=== PATIENT | female | born 1940 | race Caucasian/White ===

== ENCOUNTER 2018-01-15 21:01 | Inpatient (IN) | payer MEDICARE ==
[~2018-01-15] VITALS: Ht 160 cm; Wt 63.0 kg
[2018-01-15 20:00] VITALS: BP 150/71
[2018-01-15] MEDS ORDERED: CLON0.1T PO (21:14)
[2018-01-15] MEDS ORDERED: LEVO50TA8 PO (21:14)
[2018-01-15] MEDS ORDERED: DIVA-78 PO (21:14)
[2018-01-15] MEDS ORDERED: TRIA15CR2 TP (21:14)
[2018-01-15] MEDS ORDERED: FENO145T37 PO (21:14)
[2018-01-15] MEDS ORDERED: GLIM1TAB3 PO (21:14)
[2018-01-15] MEDS ORDERED: FLUT16SP NS (21:14)
[2018-01-15] MEDS ORDERED: ASPI81TA31 PO (21:14)
[2018-01-15] MEDS ORDERED: QUET50TA PO (21:14)
[2018-01-15] MEDS ORDERED: ZOLP5TAB8 PO (21:14)
[2018-01-15] MEDS ORDERED: METF-441 PO (21:14)
[2018-01-15] MEDS ORDERED: QUET100T PO (21:14)
[2018-01-15] MEDS ORDERED: NITR50CA PO (21:14)
[2018-01-15] MEDS ORDERED: LISI10TA5 PO (21:14)
--- NOTE | 2018-01-15 22:07 | NUR ---
Pt. admitted to GPS, under care of Dr. Byrnes Belongs List completed
--- NOTE | 2018-01-15 22:10 | NUR ---
Patient transferred to MHU from ED. Patient is a 77y/o F. admitted on a 5150 hold for Suicidal Ideation with a plan to cut her wrists. Patient in A&O x3, PERRLA, Skin is intact, pink & warm to touch. Bilateral lung sounds clear. No SOB noted. Bowel sounds present. No pain verbalized by patient. No distress or discomfort observed. Patient ambulates with a steady gate. Patient compliant and interacting with staff appropriately. Will continue to monitor. Report received from CHALO Segovia.
[2018-01-16] MEDS ORDERED: ACETAMINOPHEN 325 MG TABLET PO PRN (00:15)
[2018-01-16] MEDS ORDERED: MAGNESIUM HYDROXIDE 30 ML LIQUID UDC PO PRN (00:15)
[2018-01-16] MEDS ORDERED: MAG HYDROX/AL HYDROX/SIMETH 30 ML LIQUID UDC PO PRN (00:15)
[2018-01-16] MEDS ORDERED: CLONIDINE HCL 0.1 MG TABLET PO PRN (00:30)
[2018-01-16] MEDS: ZOLPIDEM 5 MG TABLET PO PRN ×2 (00:36→20:23)
[2018-01-16] MEDS: LORAZEPAM 0.5 MG TABLET PO PRN (02:40)
[2018-01-16] MEDS: GLIMEPIRIDE 2 MG TABLET PO SCH (08:19)
[2018-01-16] MEDS: LEVOTHYROXINE SODIUM 50 MCG TABLET PO SCH (08:19)
[2018-01-16] MEDS: FENOFIBRATE NANOCRYSTALLIZED 145 MG TABLET PO SCH (08:19)
[2018-01-16] MEDS: ASPIRIN 81 MG TAB.CHEW PO SCH (08:19)
[2018-01-16] MEDS: LISINOPRIL 10 MG TABLET PO SCH (08:19)
[2018-01-16 08:30] VITALS: BP 118/47
[2018-01-16] MEDS: METFORMIN HCL 850 MG TABLET PO SCH ×2 (08:59→17:00)
[2018-01-16] MEDS ORDERED: FLUTICASONE PROP NASAL SPRAY 16 GM BOTTLE NS SCH (09:00)
[2018-01-16] MEDS ORDERED: Medication Not On Formulary EA (Glimepiride 1 MG) PO SCH (09:00)
[2018-01-16] MEDS: NITROFURANTOIN/NITROFURAN MAC 100 MG CAPSULE PO SCH ×2 (10:34→20:19)
[2018-01-16] MEDS: TRIAMCINOLONE ACET 0.5% CREAM 15 GM TUBE TP SCH ×2 (10:34→20:19)
[2018-01-16] MEDS: FLUTICASONE PROP NASAL SPRAY 16 GM BOTTLE NS SCH (11:20)
[2018-01-16] MEDS: DIVALPROEX 250 MG TABLET.DR PO SCH ×2 (12:50→16:48)
[2018-01-16 15:39] VITALS: BP 116/74
[2018-01-16 20:00] VITALS: BP 121/78
[2018-01-17 02:20] LABS: *BILIRUBIN,URIN NEGATIVE (NEGATIVE); *BLOOD, URINE Trace-intact (NEGATIVE); *CLARITY,URINE CLEAR (CLEAR); *COLOR,URINE YELLOW (YELLOW); *KETONES,URINE NEGATIVE (NEGATIVE); *PROTEIN,URINE NEGATIVE (NEGATIVE); *UROBILINOGEN,URINE 0.2 E.U./dl (NORMAL); LEUKOCYTE ESTERASE ,URINE NEGATIVE (NEGATIVE); NITRITE, URINE NEGATIVE (NEGATIVE); UGLUCOSE NEGATIVE (NEGATIVE)
[2018-01-17] MEDS: LORAZEPAM 0.5 MG TABLET PO PRN (02:28)
[2018-01-17 02:30] LABS: BACTERIA,URINE NONE SEEN /HPF (NONE SEEN); RBC,URINE 0-3 /HPF (0-3); SQUAMOUS EPITHELIAL CELL,UR FEW /HPF (NONE SEEN); WBC,URINE NONE SEEN /HPF (0-3)
[2018-01-17] MEDS: LEVOTHYROXINE SODIUM 50 MCG TABLET PO SCH (06:48)
[2018-01-17 07:21] LABS: CARBON DIOXIDE 27 mmol/L (21-32); CHLORIDE 108 mmol/L (98-107); CREATININE 0.7 mg/dL (0.6-1.3); GLUCOSE 103 mg/dL (74-106); MAGNESIUM 1.8 mg/dL (1.8-2.4); POTASSIUM 3.7 mmol/L (3.5-5.1); UREA NITROGEN, BLOOD 25 mg/dL (7-18)
[2018-01-17 07:30] VITALS: BP 143/71
[2018-01-17 07:46] LABS: BASOPHILS # (AUTO) 0.1 K/uL (0.0-8.0); EOSINOPHILS # (AUTO) 0.2 K/uL (0.0-0.7); EOSINOPHILS % (AUTO) 3.9 % (0.0-7.0); HEMATOCRIT 34.4 % (31.2-41.9); HEMOGLOBIN 11.7 g/dL (10.9-14.3); LYMPHOCYTES # (AUTO) 1.9 K/uL (20.0-40.0); LYMPHOCYTES % (AUTO) 31.8 % (20.5-51.5); MEAN CORPUSCULAR HEMOGLOBIN 29.3 uug (24.7-32.8); MEAN CORPUSCULAR HGB CONC 34 g/dL (32.3-35.6); MEAN CORPUSCULAR VOLUME 86.3 fL (75.5-95.3); MONOCYTES # (AUTO) 0.5 K/uL (2.0-10.0); MONOCYTES % (AUTO) 8.4 % (0.0-11.0); NEUTROPHILS # (AUTO) 3.3 K/uL (1.8-8.9); NEUTROPHILS % (AUTO) 54.9 % (38.5-71.5); PLATELET COUNT (AUTO) 371 K/uL (179-408); RED BLOOD CELL COUNT(AUTO) 3.98 MIL/uL (3.63-4.92); WHITE BLOOD COUNT (AUTO) 6.1 K/uL (3.8-11.8)
[2018-01-17 09:19] VITALS: BP 143/71
[2018-01-17] MEDS: FENOFIBRATE NANOCRYSTALLIZED 145 MG TABLET PO SCH (09:19)
[2018-01-17] MEDS: DIVALPROEX 250 MG TABLET.DR PO SCH ×2 (09:19→12:40)
[2018-01-17] MEDS: ASPIRIN 81 MG TAB.CHEW PO SCH (09:19)
[2018-01-17] MEDS: NITROFURANTOIN/NITROFURAN MAC 100 MG CAPSULE PO SCH (09:19)
[2018-01-17] MEDS: GLIMEPIRIDE 2 MG TABLET PO SCH (09:19)
[2018-01-17] MEDS: FLUTICASONE PROP NASAL SPRAY 16 GM BOTTLE NS SCH (09:19)
[2018-01-17] MEDS: METFORMIN HCL 850 MG TABLET PO SCH (09:19)
[2018-01-17] MEDS: LISINOPRIL 10 MG TABLET PO SCH (09:19)
[2018-01-17] MEDS: TRIAMCINOLONE ACET 0.5% CREAM 15 GM TUBE TP SCH (09:20)
--- NOTE | 2018-01-17 16:00 | NUR ---
[facility]PS: Nursing Notes: Discharge Notes: Patient is awake and responding to her name, cooperative with nursing care, compliant with her medication, following staff directions, A/Ox4, at this time, denies any SI/HI, denies any AH/VH, denies any pain or discomfort, denies any SOB. Dicharge to 2nd floor, Telemetry department with Dx: Syncope per Rachel Schmidt NP, Dr. Byrnes to follow for psychiatric evaluation and treatment. Stenotype Machine Operator: Issa Armenta to follow for consultation. Patient's daughter Hina Gauthier was notify of transfer. Patient took all her belongings with her.
[2018-01-17] MEDS ORDERED: DIVALPROEX 250 MG TABLET.DR PO SCH (17:00)
--- NOTE | 2018-01-18 09:07 | NUR ---
Initial DC Instructions: Patient currently lives at [address]. [place], [place], [address] her daughter, Hina Gauthier [[phone]]. Per patient she would like to return to live with her daughter when ready. Resident Director spoke with daughter and she is agreeable with patient returning home with her. Patient will need a smoking cessation referrals upon discharge. Resident Director will assist patient and P.O.A. with a safe and proper discharge plan.
== END 2018-01-17 16:00 | disposition short-term general hospital (02) | DRG 885 ==
LOC: ER 21:04 → GPS 21:58
PROVIDERS: ADMIT Psychiatry & Neurology Psychosomatic Medicine; ATTEND Nurse Practitioner Acute Care
DX: F25.0 Schizoaffective disorder, bipolar type (principal); E11.65 Type 2 diabetes mellitus with hyperglycemia; R45.851 Suicidal ideations; Z88.0 Allergy status to penicillin; Z88.2 Allergy status to sulfonamides; Z88.8 Allergy status to other drugs, medicaments and biological substances; Z79.84 Long term (current) use of oral hypoglycemic drugs; Z79.82 Long term (current) use of aspirin; Z66 Do not resuscitate; F41.0 Panic disorder [episodic paroxysmal anxiety]; E03.9 Hypothyroidism, unspecified; E78.5 Hyperlipidemia, unspecified; I45.81 Long QT syndrome; R55 Syncope and collapse; I10 Essential (primary) hypertension; I45.10 Unspecified right bundle-branch block; E86.0 Dehydration; F09 Unspecified mental disorder due to known physiological condition; Z86.69 Personal history of other diseases of the nervous system and sense organs
CPT/HCPCS: 36415; 83735; 84100; 85025; 93005; 93307; A4663; J3490; J3535

== ENCOUNTER 2018-01-17 16:23 | Inpatient (IN) | payer MEDICARE ==
[~2018-01-17] VITALS: Ht 160 cm; Wt 63.0 kg
[2018-01-17 04:00] VITALS: BP 103/59
--- NOTE | 2018-01-17 15:45 | NUR ---
RECEIVED PATIENT FROM U 77 YEARS OLD FEMALE WITH DX OF SYNCOPE ASSISTED INTO BED FIXED AND MADE COMFORTABLE PATIENT IS ALERT AND ORIENTED AND ASSISTED WITH HER ADMISSION PROTOCOL.DENIES PAIN DISCOMFORTS OR SUICIDAL AT THIS TIME ON ROOM AIR WITH NO SHORTNESS OF BREATH AT THIS TIME.ORIENTED TO ROOM AND THE FACILITY PROTOCOL MADE COMFORTABLE NOT IN DISTRESS AT THIS TIME.
[~2018-01-17 16:23] MED LIST: ASPI81TA31 PO; CLON0.1T PO; FENO145T37 PO; FLUT16SP NS; GLIM1TAB3 PO; LEVO50TA8 PO; LISI10TA5 PO; METF-441 PO; NITR50CA PO; TRIA15CR2 TP
[2018-01-17] MEDS ORDERED: MAGNESIUM HYDROXIDE 30 ML LIQUID UDC PO PRN (16:30)
[2018-01-17] MEDS ORDERED: CLONIDINE HCL 0.1 MG TABLET PO PRN (16:30)
[2018-01-17] MEDS ORDERED: MAG HYDROX/AL HYDROX/SIMETH 30 ML LIQUID UDC PO PRN (16:30)
--- NOTE | 2018-01-17 17:40 | NUR ---
HEPLOCK INSERTED TO HER LEFT FORE ARM TELE MONITORING IS SR NOT IN DISTRESS AT THIS TIME.
[2018-01-17] MEDS: METFORMIN HCL 850 MG TABLET PO SCH (17:51)
[2018-01-17] MEDS ORDERED: ONDANSETRON 4 MG/2 ML VIAL IV PRN (19:45)
[2018-01-17] MEDS ORDERED: HYDROCODONE/APAP 5-325MG TABLET PO PRN (19:45)
[2018-01-17 20:00] VITALS: BP 110/59
--- NOTE | 2018-01-17 20:00 | NUR ---
RECEIVED PT'S A/A/O X4,DENIED OF PAIN OR ANY DISCOMFORT.PT'S ON 14 DAYS HOLD;W/1:1 SITTER AT THE BEDSIDE FOR SAFETY.PT DENIED OF PAIN OR ANY DIZZINESS.TELEMETRY'S SR W/BBB NOTED.PER PT REQUESTED TO GET MEDICATION FOR ANXIETY LATER.SAFETY RENDER.
[2018-01-17] MEDS: NITROFURANTOIN/NITROFURAN MAC 100 MG CAPSULE PO SCH (20:11)
[2018-01-17] MEDS: TRIAMCINOLONE ACET 0.5% CREAM 15 GM TUBE TP SCH (20:11)
--- NOTE | 2018-01-17 21:30 | NUR ---
ATIVAN 0.5 MG PO X1 TO PT REQUEST,CRANBERRY JUICE WAS GIVEN TO PT;PT TOLERATED WELL NOTED,DENIED OF PAIN OR ANY DISCOMFORT.SAFETY RENDER.1:1 SITTER AT THE BEDSIDE.
[2018-01-17] MEDS: LORAZEPAM 0.5 MG TABLET PO PRN (21:31)
[2018-01-17] MEDS: ZOLPIDEM 5 MG TABLET PO PRN (23:16)
[2018-01-18] VITALS: BP 134/71
--- NOTE | 2018-01-18 01:00 | NUR ---
PT'S COMFORTABLE ON BED;DENIED OF DIZZINESS,ALREADY GOT AMBIEN,STATED THAT"I'M OK IF I NEED ANY MEDICATION,I'LL ASK".KEPT COMFORT.CALL-LIGHT WITHIN REACH.TELEMETRY'S SR 78 W/BBB.CONTINUED MONITORING TO PT.
[2018-01-18 04:20] VITALS: BP 131/65
--- NOTE | 2018-01-18 06:00 | NUR ---
PT SLEPT ONLY 2 HOURS IN THE SHIFT,MOSTLY WATCHED TV.PAIN'S CONTROLLED.NO DISTRESS NOTED IN THE SHIFT.TELEMETRY'S SR 64/MIN AT THIS TIME,PT DENIED OF ANY DIZZINESS AT THIS TIME NOTED.
[2018-01-18] MEDS: LEVOTHYROXINE SODIUM 50 MCG TABLET PO SCH (06:22)
[2018-01-18 06:37] LABS: BASOPHILS # (AUTO) 0.1 K/uL (0.0-8.0); EOSINOPHILS # (AUTO) 0.3 K/uL (0.0-0.7); EOSINOPHILS % (AUTO) 4.3 % (0.0-7.0); HEMATOCRIT 33.9 % (31.2-41.9); HEMOGLOBIN 11.3 g/dL (10.9-14.3); LYMPHOCYTES # (AUTO) 2.1 K/uL (20.0-40.0); MEAN CORPUSCULAR HGB CONC 33 g/dL (32.3-35.6); MEAN CORPUSCULAR VOLUME 86.8 fL (75.5-95.3); MONOCYTES # (AUTO) 0.5 K/uL (2.0-10.0); NEUTROPHILS # (AUTO) 3.8 K/uL (1.8-8.9); NEUTROPHILS % (AUTO) 55.7 % (38.5-71.5); PLATELET COUNT (AUTO) 360 K/uL (179-408); WHITE BLOOD COUNT (AUTO) 6.9 K/uL (3.8-11.8)
[2018-01-18 06:42] LABS: CARBON DIOXIDE 24 mmol/L (21-32); CHLORIDE 104 mmol/L (98-107); CREATININE 0.9 mg/dL (0.6-1.3); GLUCOSE 136 mg/dL (74-106); MAGNESIUM 1.7 mg/dL (1.8-2.4); PHOSPHOROUS 2.9 mg/dL (2.5-4.9); POTASSIUM 4.3 mmol/L (3.5-5.1); UREA NITROGEN, BLOOD 27 mg/dL (7-18)
--- NOTE | 2018-01-18 07:45 | NUR ---
RECEIVED PATIENT AWAKE ALERT AND ORIENTED DENIES PAIN OR DISCOMFORTS AT THIS TIME REMAIN ON HOLD WITH ONE ON ONE SITTER NO S/S OF HYPO/HYPERGLYCEMIC REACTIONS AT THIS TIME REMAIN ON TELEMETRY MONITORY SR WITH NO ECTOPY MADE COMFORTABLE AND WILL CONTINUE TO OBSERVE.
[2018-01-18] MEDS: ASPIRIN 81 MG TAB.CHEW PO SCH (08:30)
[2018-01-18] MEDS: FENOFIBRATE NANOCRYSTALLIZED 145 MG TABLET PO SCH (08:30)
[2018-01-18] MEDS: NITROFURANTOIN/NITROFURAN MAC 100 MG CAPSULE PO SCH ×2 (08:31→20:53)
[2018-01-18] MEDS: METFORMIN HCL 850 MG TABLET PO SCH (08:31)
[2018-01-18] MEDS: GLIMEPIRIDE 2 MG TABLET PO SCH (08:31)
[2018-01-18] MEDS: FLUTICASONE PROP NASAL SPRAY 16 GM BOTTLE NS SCH (08:32)
[2018-01-18] MEDS: TRIAMCINOLONE ACET 0.5% CREAM 15 GM TUBE TP SCH ×2 (08:33→20:53)
[2018-01-18] MEDS: LISINOPRIL 10 MG TABLET PO SCH (08:34)
[2018-01-18] MEDS: risperiDONE 0.25 MG TABLET PO SCH ×2 (08:38→16:28)
[2018-01-18] MEDS: BENZTROPINE MESYLATE 0.5 MG TABLET PO SCH ×2 (08:38→16:28)
[2018-01-18 11:00] VITALS: BP 133/62
[2018-01-18] MEDS ORDERED: DEXTROSE 50% 50 ML DISP.SYRIN IV PRN (11:15)
[2018-01-18] MEDS ORDERED: IV NS 1000 ML 1,000 ML IV ONE (11:15)
--- NOTE | 2018-01-18 11:34 | NUR ---
Firearms Report: Plate Printer completed and submitted [employer]arms Report for 5150 DTS certification.
[2018-01-18] MEDS: MAGNESIUM SULFATE/D5W 100 ML IV SCH ×2 (11:48→12:55)
[2018-01-18] MEDS: BLOOD SUGAR DIAGNOSTIC 1 EACH STRIP VI SCH ×3 (11:54→20:53)
[2018-01-18] MEDS: INSULIN REGULAR, HUMAN 300 UNIT/3 ML VIAL SQ PRN (11:57)
[2018-01-18 12:32] LABS: THYROID STIMULATING HORMONE 3.871 mIU/mL (0.358-3.740)
[2018-01-18] MEDS: DIVALPROEX 250 MG TABLET.DR PO SCH ×2 (12:55→16:28)
[2018-01-18 13:41] LABS: *BILIRUBIN,URIN NEGATIVE (NEGATIVE); *BLOOD, URINE NEGATIVE (NEGATIVE); *CLARITY,URINE CLEAR (CLEAR); *COLOR,URINE YELLOW (YELLOW); *KETONES,URINE NEGATIVE (NEGATIVE); *PROTEIN,URINE NEGATIVE (NEGATIVE); *UROBILINOGEN,URINE 0.2 E.U./dl (NORMAL); LEUKOCYTE ESTERASE ,URINE NEGATIVE (NEGATIVE); NITRITE, URINE NEGATIVE (NEGATIVE); UGLUCOSE NEGATIVE (NEGATIVE)
[2018-01-18 15:12] LABS: BACTERIA,URINE NONE SEEN /HPF (NONE SEEN); RBC,URINE 0-3 /HPF (0-3); SQUAMOUS EPITHELIAL CELL,UR FEW /HPF (NONE SEEN); WBC,URINE 0-3 /HPF (0-3)
[2018-01-18] MEDS: ACETAMINOPHEN 325 MG TABLET PO PRN (15:24)
--- NOTE | 2018-01-18 16:27 | NUR ---
BLOOD SUGAR AT THIS TIME IS 62 PATIENT IS ALERT AND ORIENTED SKIN IS WARM AND DRY NO S/S OF HYPOGLYCEMIC AT THIS TIME ORANGE JUICE 4 OZ GIVEN PATIENT DRANK AND TOLERATED WELL.WILL CONTINUE TO OBSERVE PT.
--- NOTE | 2018-01-18 17:08 | NUR ---
BLOOD SUGAR RECHECKED AT THIS TIME AND ITS 119 DINNER SERVED NOT IN DISTRESS AT THIS TIME .PATIENT MADE COMFORTABLE.
--- NOTE | 2018-01-18 17:56 | NUR ---
DR CHOPRA AND DR EDMONDS HERE TO SEE PATIENT MD REVIEWED THE EKG RESULTS WITH NO NEW ORDERS AT THIS TIME EKG WILL BE REPEATED TOMORROW MORNING ORDERED.
--- NOTE | 2018-01-18 19:35 | NUR ---
nsg: pt received a/o x 4, no acute distress noted. denies discomfort. on RA, saturating at 95%. tele, SR with bbb. on psychiatric 14 day hold, 1:1 sitter at the bedside. ambulatory with assistance.
[2018-01-18 20:00] VITALS: BP 127/70
[2018-01-18] MEDS: ZOLPIDEM 5 MG TABLET PO PRN (22:46)
[2018-01-19] VITALS: BP 115/56
--- NOTE | 2018-01-19 | NUR ---
nsg: no change in condition.
[2018-01-19] MEDS: LORAZEPAM 0.5 MG TABLET PO PRN (00:06)
[2018-01-19 04:00] VITALS: BP 118/73
--- NOTE | 2018-01-19 05:19 | NUR ---
nsg: pt only slept for 30 mins. ambien and ativan given. no acute distress noted. denies discomfort. tele, SR. still with 1:1 sitter at bedside.
[2018-01-19] MEDS: LEVOTHYROXINE SODIUM 50 MCG TABLET PO SCH (05:55)
[2018-01-19 06:23] LABS: BASOPHILS # (AUTO) 0.1 K/uL (0.0-8.0); BASOPHILS % (AUTO) 0.9 % (0.0-2.0); EOSINOPHILS # (AUTO) 0.3 K/uL (0.0-0.7); EOSINOPHILS % (AUTO) 4.7 % (0.0-7.0); HEMATOCRIT 33.7 % (31.2-41.9); HEMOGLOBIN 11.4 g/dL (10.9-14.3); LYMPHOCYTES # (AUTO) 2.3 K/uL (20.0-40.0); LYMPHOCYTES % (AUTO) 31.8 % (20.5-51.5); MEAN CORPUSCULAR HEMOGLOBIN 28.6 uug (24.7-32.8); MEAN CORPUSCULAR HGB CONC 34 g/dL (32.3-35.6); MEAN CORPUSCULAR VOLUME 84.8 fL (75.5-95.3); MONOCYTES # (AUTO) 0.6 K/uL (2.0-10.0); MONOCYTES % (AUTO) 7.9 % (0.0-11.0); NEUTROPHILS % (AUTO) 54.7 % (38.5-71.5); PLATELET COUNT (AUTO) 363 K/uL (179-408); RED BLOOD CELL COUNT(AUTO) 3.97 MIL/uL (3.63-4.92); WHITE BLOOD COUNT (AUTO) 7.2 K/uL (3.8-11.8)
--- NOTE | 2018-01-19 06:27 | NUR ---
nsg: QT interval is 43 sec.
[2018-01-19 06:49] LABS: CARBON DIOXIDE 25 mmol/L (21-32); CHLORIDE 108 mmol/L (98-107); CREATININE 0.7 mg/dL (0.6-1.3); GLUCOSE 99 mg/dL (74-106); POTASSIUM 3.9 mmol/L (3.5-5.1); UREA NITROGEN, BLOOD 19 mg/dL (7-18)
[2018-01-19] MEDS: BLOOD SUGAR DIAGNOSTIC 1 EACH STRIP VI SCH ×4 (07:59→21:01)
[2018-01-19 08:00] VITALS: BP 146/74
[2018-01-19] MEDS: ASPIRIN 81 MG TAB.CHEW PO SCH (08:14)
[2018-01-19] MEDS: GLIMEPIRIDE 2 MG TABLET PO SCH (08:15)
[2018-01-19] MEDS: NITROFURANTOIN/NITROFURAN MAC 100 MG CAPSULE PO SCH (08:16)
[2018-01-19] MEDS: FENOFIBRATE NANOCRYSTALLIZED 145 MG TABLET PO SCH (08:16)
[2018-01-19] MEDS: LISINOPRIL 10 MG TABLET PO SCH (08:17)
[2018-01-19] MEDS: BENZTROPINE MESYLATE 0.5 MG TABLET PO SCH ×2 (08:17→16:50)
[2018-01-19] MEDS: DIVALPROEX 250 MG TABLET.DR PO SCH ×3 (08:17→16:49)
[2018-01-19] MEDS: FLUTICASONE PROP NASAL SPRAY 16 GM BOTTLE NS SCH (08:18)
[2018-01-19] MEDS: risperiDONE 0.25 MG TABLET PO SCH ×3 (08:18→22:31)
[2018-01-19] MEDS: TRIAMCINOLONE ACET 0.5% CREAM 15 GM TUBE TP SCH ×2 (08:19→21:01)
--- NOTE | 2018-01-19 09:53 | NUR ---
SBAR report received, Pt resting in bed, AAOx4, no acute distress or SOB RA. Pt denies pain, claims to be "slightly paranoid at times", reassured Pt staff is simply here to help keep her safe. 1:1 sitter present at bedside. Pt denies SI at this time. Pt compliant with all routinely scheduled morning medications. Stable gait observed. Pt seen by BRAZER CONTROLLED ATMOSPHERIC FURNACE. All safety and comfort needs met at this time. Bed in locked and lowest position, side rails upx2. Will continue to monitor for safety.
[2018-01-19 12:00] VITALS: BP 116/69
[2018-01-19 16:00] VITALS: BP 128/70
--- NOTE | 2018-01-19 18:51 | NUR ---
No changes to Pt plan of care at this time. Pt is in SR, HR 79, with PVCs. 1:1 sitter remains at bedside. All safety and comfort needs attended to promptly. Last BS of 90 did not require coverage. Will continue to monitor and endorse to oncoming manager research and development.
--- NOTE | 2018-01-19 19:30 | NUR ---
RECEIVED PATIENT IN BED ALERT ORIENTED, NO SOB NO CHEST PAIN, RHYTHM SINUS RHYHTM WITH PVC, R BUNDLE BRANCH BLOCK. NO COMPLAIN OF PAIN, CONT 1;1 SITTER FOR SAFETY, OBTAIN REPORT THAT PATIENT DIDNT SLEEP LAST NIGHT, REORIENT PATIENT THAT SHE NEEDS SLEEP, SO THAT SHE WILL FEEL WELL RESTED IN THE MORNING. CONT TO MONITOR.
[2018-01-19 20:00] VITALS: BP 120/63
[2018-01-19] MEDS: INSULIN REGULAR, HUMAN 300 UNIT/3 ML VIAL SQ PRN (21:00)
[2018-01-19] MEDS: ACETAMINOPHEN 325 MG TABLET PO PRN (22:31)
[2018-01-19] MEDS: ZOLPIDEM 5 MG TABLET PO PRN (23:28)
[2018-01-20] VITALS: BP 122/63
[2018-01-20 04:00] VITALS: BP 115/60
[2018-01-20] MEDS: LEVOTHYROXINE SODIUM 50 MCG TABLET PO SCH (06:02)
[2018-01-20] MEDS: BLOOD SUGAR DIAGNOSTIC 1 EACH STRIP VI SCH ×3 (06:02→17:13)
[2018-01-20 06:40] LABS: BASOPHILS # (AUTO) 0.1 K/uL (0.0-8.0); BASOPHILS % (AUTO) 1.3 % (0.0-2.0); EOSINOPHILS # (AUTO) 0.4 K/uL (0.0-0.7); EOSINOPHILS % (AUTO) 5.8 % (0.0-7.0); HEMATOCRIT 36.6 % (31.2-41.9); HEMOGLOBIN 12.3 g/dL (10.9-14.3); LYMPHOCYTES # (AUTO) 2.2 K/uL (20.0-40.0); LYMPHOCYTES % (AUTO) 29.8 % (20.5-51.5); MEAN CORPUSCULAR HEMOGLOBIN 28.9 uug (24.7-32.8); MEAN CORPUSCULAR HGB CONC 34 g/dL (32.3-35.6); MEAN CORPUSCULAR VOLUME 86.2 fL (75.5-95.3); MONOCYTES # (AUTO) 0.6 K/uL (2.0-10.0); MONOCYTES % (AUTO) 8.5 % (0.0-11.0); NEUTROPHILS # (AUTO) 4.1 K/uL (1.8-8.9); NEUTROPHILS % (AUTO) 54.6 % (38.5-71.5); PLATELET COUNT (AUTO) 406 K/uL (179-408); RED BLOOD CELL COUNT(AUTO) 4.25 MIL/uL (3.63-4.92); WHITE BLOOD COUNT (AUTO) 7.5 K/uL (3.8-11.8)
--- NOTE | 2018-01-20 06:40 | NUR ---
PATIENT SLEPT ON AND OFF, SLEPT FOR 4 HOURS ONLY, ASSISTED WITH TOILETING, NO COMPLAIN OF PAIN NOR DISCOMFORT, ON TELE SINUS RHYTHM WITH PVC, R BUNDLE BRANCH. PATIENT STILL HAS EPISODES OF HALLUCINATIONS, AND PARANOIA. CONT TO REDIRECT PATIENT, NO COMPLAIN OF PAIN. CONT ON 1;1 SITTER FOR SAFETY. CONT TO MONITOR.
[2018-01-20 06:49] LABS: CARBON DIOXIDE 28 mmol/L (21-32); CHLORIDE 105 mmol/L (98-107); CREATININE 0.8 mg/dL (0.6-1.3); GLUCOSE 111 mg/dL (74-106); POTASSIUM 4.1 mmol/L (3.5-5.1); UREA NITROGEN, BLOOD 20 mg/dL (7-18); VALPROIC ACID 18 ug/mL (50-100)
[2018-01-20] MEDS: GLIMEPIRIDE 2 MG TABLET PO SCH (09:01)
[2018-01-20] MEDS: risperiDONE 0.25 MG TABLET PO SCH ×2 (09:01→17:13)
[2018-01-20] MEDS: DIVALPROEX 250 MG TABLET.DR PO SCH ×3 (09:01→17:13)
[2018-01-20] MEDS: BENZTROPINE MESYLATE 0.5 MG TABLET PO SCH ×2 (09:02→17:13)
[2018-01-20] MEDS: FENOFIBRATE NANOCRYSTALLIZED 145 MG TABLET PO SCH (09:02)
[2018-01-20] MEDS: ASPIRIN 81 MG TAB.CHEW PO SCH (09:02)
[2018-01-20] MEDS: LISINOPRIL 10 MG TABLET PO SCH (09:06)
[2018-01-20] MEDS: TRIAMCINOLONE ACET 0.5% CREAM 15 GM TUBE TP SCH (09:06)
[2018-01-20] MEDS: FLUTICASONE PROP NASAL SPRAY 16 GM BOTTLE NS SCH (09:07)
[2018-01-20 10:30] VITALS: BP 137/73
[2018-01-20 15:30] VITALS: BP 105/60
--- NOTE | 2018-01-20 17:03 | NUR ---
PATIENT HAS BEEN COOPERATIVE WITH CARE, TAKING MEDS DIRECTED, NO DISTRESS NOTED THROUGHOUT SHIFT. SITTER IS WITH PATIENT THROUGHOUT THE DAY. DISCHARGE INSTRUCTIONS GIVEN AND BELONGINGS ARE ACCOUNTED FOR. PATIENT WILL BE TAKEN TO MHU AFTER DINNER SERVICE.
[2018-01-20] MEDS ORDERED: BLOO-668 IN (20:44)
[2018-01-20] MEDS ORDERED: HYDR-3980 PO (20:44)
[2018-01-20] MEDS ORDERED: INSU100V28 SQ (20:44)
[2018-01-20] MEDS ORDERED: DIVALPROEX 250 MG TABLET.DR PO SCH (21:00)
== END 2018-01-20 18:00 | DRG 640 ==
LOC: TELE 16:23 → MED 01-20 16:31
PROVIDERS: ADMIT Nurse Practitioner Acute Care; ATTEND Nurse Practitioner Acute Care
DX: E86.0 Dehydration (principal); G93.41 Metabolic encephalopathy; E03.9 Hypothyroidism, unspecified; F31.9 Bipolar disorder, unspecified; E78.5 Hyperlipidemia, unspecified; E11.65 Type 2 diabetes mellitus with hyperglycemia; I45.81 Long QT syndrome; I45.10 Unspecified right bundle-branch block; Z79.82 Long term (current) use of aspirin; Z79.84 Long term (current) use of oral hypoglycemic drugs; Z88.0 Allergy status to penicillin; Z88.2 Allergy status to sulfonamides; Z88.8 Allergy status to other drugs, medicaments and biological substances; I10 Essential (primary) hypertension; Z86.69 Personal history of other diseases of the nervous system and sense organs
CPT/HCPCS: 36415; 80164; 83735; 84100; 84443; 85025; 93005; A4663; J1815; J3475; J3490; J3535; J7030

== ENCOUNTER 2018-01-20 18:20 | Inpatient (IN) | payer MEDICARE ==
[~2018-01-20] VITALS: Ht 157.5 cm; Wt 62.6 kg
[2018-01-20] MEDS ORDERED: HYDR-3980 PO (20:44)
[2018-01-20] MEDS ORDERED: BLOO-668 IN (20:44)
[2018-01-20] MEDS ORDERED: INSU100V28 SQ (20:44)
[2018-01-20] MEDS ORDERED: MAG HYDROX/AL HYDROX/SIMETH 30 ML LIQUID UDC PO PRN (21:15)
[2018-01-20] MEDS ORDERED: MAGNESIUM HYDROXIDE 30 ML LIQUID UDC PO PRN (21:15)
[2018-01-20 21:43] VITALS: BP 120/76
[2018-01-20] MEDS ORDERED: CLONIDINE HCL 0.1 MG TABLET PO PRN (22:00)
[2018-01-20] MEDS ORDERED: HYDROCODONE/APAP 10-325 MG TABLET PO PRN (22:00)
[2018-01-20] MEDS ORDERED: INSULIN REGULAR, HUMAN 300 UNIT/3 ML VIAL SQ PRN (22:00)
[2018-01-20] MEDS: TEMAZEPAM 7.5 MG CAPSULE PO PRN (23:02)
[2018-01-20] MEDS: ACETAMINOPHEN 325 MG TABLET PO PRN (23:02)
[2018-01-21] MEDS: LORAZEPAM 0.5 MG TABLET PO PRN (03:11)
[2018-01-21 07:30] VITALS: BP 117/57
[2018-01-21] MEDS: FENOFIBRATE NANOCRYSTALLIZED 145 MG TABLET PO SCH (08:31)
[2018-01-21] MEDS: LISINOPRIL 10 MG TABLET PO SCH (08:32)
[2018-01-21] MEDS: ASPIRIN 81 MG TAB.CHEW PO SCH (08:32)
[2018-01-21] MEDS: LEVOTHYROXINE SODIUM 50 MCG TABLET PO SCH (08:32)
[2018-01-21] MEDS ORDERED: FLUTICASONE PROP NASAL SPRAY 16 GM BOTTLE NS SCH (09:00)
[2018-01-21] MEDS ORDERED: Medication Not On Formulary EA (Glimepiride 1 MG) PO SCH (09:00)
[2018-01-21] MEDS ORDERED: TRIAMCINOLONE ACET 0.5% CREAM 15 GM TUBE TP SCH (09:00)
[2018-01-21] MEDS: METFORMIN HCL 850 MG TABLET PO SCH ×2 (09:35→16:50)
[2018-01-21] MEDS: FLUTICASONE PROP NASAL SPRAY 16 GM BOTTLE NS SCH (09:35)
[2018-01-21] MEDS: TRIAMCINOLONE ACET 0.5% CREAM 15 GM TUBE TP SCH ×2 (09:36→16:51)
[2018-01-21] MEDS: GLIMEPIRIDE 2 MG TABLET PO SCH (09:43)
[2018-01-21] MEDS: DIVALPROEX 250 MG TABLET.DR PO SCH ×2 (12:38→16:50)
[2018-01-21] MEDS: risperiDONE 0.25 MG TABLET PO SCH ×2 (12:38→16:50)
[2018-01-21 15:20] LABS: BILIRUBIN,DIRECT 0.1 mg/dL (0.0-0.2); BILIRUBIN,TOTAL 0.3 mg/dL (0.2-1.0); TOTAL PROTEIN, SERUM 6.7 g/dL (6.4-8.2)
[2018-01-21 15:47] VITALS: BP 108/65
[2018-01-21 20:14] VITALS: BP 107/55
[2018-01-21] MEDS: TEMAZEPAM 7.5 MG CAPSULE PO PRN (22:46)
[2018-01-22 06:24] LABS: BASOPHILS # (AUTO) 0.1 K/uL (0.0-8.0); BASOPHILS % (AUTO) 0.8 % (0.0-2.0); EOSINOPHILS # (AUTO) 0.4 K/uL (0.0-0.7); EOSINOPHILS % (AUTO) 4.4 % (0.0-7.0); HEMATOCRIT 35.5 % (31.2-41.9); LYMPHOCYTES # (AUTO) 3.1 K/uL (20.0-40.0); LYMPHOCYTES % (AUTO) 35.6 % (20.5-51.5); MEAN CORPUSCULAR HEMOGLOBIN 28.8 uug (24.7-32.8); MEAN CORPUSCULAR HGB CONC 34 g/dL (32.3-35.6); MEAN CORPUSCULAR VOLUME 85.4 fL (75.5-95.3); MONOCYTES # (AUTO) 0.7 K/uL (2.0-10.0); MONOCYTES % (AUTO) 7.8 % (0.0-11.0); NEUTROPHILS # (AUTO) 4.5 K/uL (1.8-8.9); NEUTROPHILS % (AUTO) 51.4 % (38.5-71.5); PLATELET COUNT (AUTO) 448 K/uL (179-408); RED BLOOD CELL COUNT(AUTO) 4.16 MIL/uL (3.63-4.92); WHITE BLOOD COUNT (AUTO) 8.8 K/uL (3.8-11.8)
[2018-01-22] MEDS: BLOOD SUGAR DIAGNOSTIC 1 EACH STRIP VI SCH ×2 (06:38→16:45)
[2018-01-22 07:04] LABS: ALANINE AMINOTRANSFERASE 18 U/L (14-59); ALKALINE PHOSPHATASE 51 U/L (50-136); ASPARTATE AMINOTRANSFERASE 6 U/L (15-37); BILIRUBIN,TOTAL 0.4 mg/dL (0.2-1.0); CARBON DIOXIDE 26 mmol/L (21-32); CHLORIDE 102 mmol/L (98-107); GLUCOSE 102 mg/dL (74-106); TOTAL PROTEIN, SERUM 7.1 g/dL (6.4-8.2); UREA NITROGEN, BLOOD 36 mg/dL (7-18)
[2018-01-22 07:12] LABS: THYROID STIMULATING HORMONE 2.668 mIU/mL (0.358-3.740)
[2018-01-22 07:30] VITALS: BP 126/63
[2018-01-22] MEDS: LEVOTHYROXINE SODIUM 50 MCG TABLET PO SCH (08:43)
[2018-01-22] MEDS: DIVALPROEX 250 MG TABLET.DR PO SCH ×3 (08:43→17:05)
[2018-01-22] MEDS: risperiDONE 0.25 MG TABLET PO SCH ×3 (08:43→17:05)
[2018-01-22] MEDS: FENOFIBRATE NANOCRYSTALLIZED 145 MG TABLET PO SCH (08:43)
[2018-01-22] MEDS: ASPIRIN 81 MG TAB.CHEW PO SCH (08:44)
[2018-01-22] MEDS: LISINOPRIL 10 MG TABLET PO SCH (08:44)
[2018-01-22] MEDS: GLIMEPIRIDE 2 MG TABLET PO SCH (08:44)
[2018-01-22] MEDS: METFORMIN HCL 850 MG TABLET PO SCH ×2 (08:46→17:05)
[2018-01-22] MEDS: TRIAMCINOLONE ACET 0.5% CREAM 15 GM TUBE TP SCH ×2 (08:47→17:05)
[2018-01-22] MEDS: FLUTICASONE PROP NASAL SPRAY 16 GM BOTTLE NS SCH (09:00)
[2018-01-22] MEDS: LORAZEPAM 0.5 MG TABLET PO PRN (10:07)
[2018-01-22 15:27] VITALS: BP 117/61
[2018-01-22 21:10] VITALS: BP 96/51
[2018-01-22] MEDS: TEMAZEPAM 7.5 MG CAPSULE PO PRN (21:21)
[2018-01-23] MEDS: ACETAMINOPHEN 325 MG TABLET PO PRN ×2 (03:45→15:34)
[2018-01-23] MEDS: BLOOD SUGAR DIAGNOSTIC 1 EACH STRIP VI SCH ×2 (06:40→16:26)
[2018-01-23] MEDS: TRIAMCINOLONE ACET 0.5% CREAM 15 GM TUBE TP SCH (09:00)
[2018-01-23] MEDS: GLIMEPIRIDE 2 MG TABLET PO SCH (09:09)
[2018-01-23] MEDS: FENOFIBRATE NANOCRYSTALLIZED 145 MG TABLET PO SCH (09:10)
[2018-01-23] MEDS: ASPIRIN 81 MG TAB.CHEW PO SCH (09:10)
[2018-01-23] MEDS: LEVOTHYROXINE SODIUM 50 MCG TABLET PO SCH (09:10)
[2018-01-23] MEDS: risperiDONE 0.25 MG TABLET PO SCH ×2 (09:10→12:18)
[2018-01-23] MEDS: DIVALPROEX 250 MG TABLET.DR PO SCH ×3 (09:10→16:38)
[2018-01-23] MEDS: LISINOPRIL 10 MG TABLET PO SCH (09:10)
[2018-01-23] MEDS: METFORMIN HCL 850 MG TABLET PO SCH ×2 (09:11→16:38)
[2018-01-23] MEDS: FLUTICASONE PROP NASAL SPRAY 16 GM BOTTLE NS SCH (09:14)
[2018-01-23 09:30] VITALS: BP 103/50
[2018-01-23] MEDS: TRIAMCINOLONE ACET 0.1% CREAM 15 GM TUBE TOP SCH ×2 (11:05→16:39)
[2018-01-23] MEDS: LORAZEPAM 0.5 MG TABLET PO PRN ×2 (12:18→22:24)
[2018-01-23 14:57] VITALS: BP 103/58
[2018-01-23 15:15] LABS: *BILIRUBIN,URIN NEGATIVE (NEGATIVE); *BLOOD, URINE Trace-lysed (NEGATIVE); *COLOR,URINE YELLOW (YELLOW); *KETONES,URINE NEGATIVE (NEGATIVE); *PROTEIN,URINE NEGATIVE (NEGATIVE); *UROBILINOGEN,URINE 0.2 E.U./dl (NORMAL); LEUKOCYTE ESTERASE ,URINE 2+ (NEGATIVE); NITRITE, URINE NEGATIVE (NEGATIVE); UGLUCOSE NEGATIVE (NEGATIVE)
[2018-01-23 15:27] LABS: *CLARITY,URINE HAZY (CLEAR)
[2018-01-23 15:28] LABS: BACTERIA,URINE FEW /HPF (NONE SEEN); SQUAMOUS EPITHELIAL CELL,UR FEW /HPF (NONE SEEN)
[2018-01-23] MEDS: NITROFURANTOIN/NITROFURAN MAC 100 MG CAPSULE PO SCH (20:10)
[2018-01-23] MEDS: TEMAZEPAM 7.5 MG CAPSULE PO PRN (20:11)
[2018-01-23 20:16] VITALS: BP 122/66
[2018-01-23] MEDS ORDERED: SULFAMETH/TRIMETH 800/160 MG TABLET PO SCH (21:00)
[2018-01-24 07:30] VITALS: BP 120/68
[2018-01-24] MEDS: NITROFURANTOIN/NITROFURAN MAC 100 MG CAPSULE PO SCH ×2 (08:17→20:26)
[2018-01-24] MEDS: ASPIRIN 81 MG TAB.CHEW PO SCH (08:18)
[2018-01-24] MEDS: DIVALPROEX 250 MG TABLET.DR PO SCH ×3 (08:18→16:05)
[2018-01-24] MEDS: METFORMIN HCL 850 MG TABLET PO SCH ×2 (08:18→16:05)
[2018-01-24] MEDS: FENOFIBRATE NANOCRYSTALLIZED 145 MG TABLET PO SCH (08:18)
[2018-01-24] MEDS: GLIMEPIRIDE 2 MG TABLET PO SCH (08:18)
[2018-01-24] MEDS: LISINOPRIL 10 MG TABLET PO SCH (08:18)
[2018-01-24] MEDS: LEVOTHYROXINE SODIUM 50 MCG TABLET PO SCH (08:18)
[2018-01-24] MEDS: TRIAMCINOLONE ACET 0.1% CREAM 15 GM TUBE TOP SCH ×2 (08:28→16:08)
[2018-01-24] MEDS: FLUTICASONE PROP NASAL SPRAY 16 GM BOTTLE NS SCH (08:28)
[2018-01-24] MEDS: ACETAMINOPHEN 325 MG TABLET PO PRN (11:01)
[2018-01-24] MEDS ORDERED: HYDROCODONE/APAP 10-325 MG TABLET PO PRN (11:46)
[2018-01-24 20:00] VITALS: BP 102/41
[2018-01-24] MEDS ORDERED: BENZTROPINE MESYLATE 0.5 MG TABLET PO SCH (21:00)
[2018-01-24] MEDS: TEMAZEPAM 7.5 MG CAPSULE PO PRN (21:26)
[2018-01-25] MEDS: LORAZEPAM 0.5 MG TABLET PO PRN (06:52)
[2018-01-25 07:30] VITALS: BP 141/73
[2018-01-25] MEDS: GLIMEPIRIDE 2 MG TABLET PO SCH (08:15)
[2018-01-25 08:16] VITALS: BP 141/73
[2018-01-25] MEDS: METFORMIN HCL 850 MG TABLET PO SCH (08:16)
[2018-01-25] MEDS: FLUTICASONE PROP NASAL SPRAY 16 GM BOTTLE NS SCH (08:16)
[2018-01-25] MEDS: LISINOPRIL 10 MG TABLET PO SCH (08:16)
[2018-01-25] MEDS: NITROFURANTOIN/NITROFURAN MAC 100 MG CAPSULE PO SCH (08:17)
[2018-01-25] MEDS: LEVOTHYROXINE SODIUM 50 MCG TABLET PO SCH (08:17)
[2018-01-25] MEDS: TRIAMCINOLONE ACET 0.1% CREAM 15 GM TUBE TOP SCH (08:17)
[2018-01-25] MEDS: DIVALPROEX 250 MG TABLET.DR PO SCH (08:17)
[2018-01-25] MEDS: FENOFIBRATE NANOCRYSTALLIZED 145 MG TABLET PO SCH (08:17)
[2018-01-25] MEDS: ASPIRIN 81 MG TAB.CHEW PO SCH (08:17)
[2018-01-25] MEDS: ACETAMINOPHEN 325 MG TABLET PO PRN (10:37)
== END 2018-01-25 12:11 | DRG 885 ==
LOC: GPS 18:20
PROVIDERS: ADMIT Psychiatry & Neurology Psychosomatic Medicine; ATTEND Nurse Practitioner Acute Care
DX: F31.5 Bipolar disorder, current episode depressed, severe, with psychotic features (principal); F03.90 Unspecified dementia, unspecified severity, without behavioral disturbance, psychotic disturbance, mood disturbance, and anxiety; E03.9 Hypothyroidism, unspecified; Z79.82 Long term (current) use of aspirin; Z79.4 Long term (current) use of insulin; Z88.0 Allergy status to penicillin; Z88.2 Allergy status to sulfonamides; F41.9 Anxiety disorder, unspecified; E78.5 Hyperlipidemia, unspecified; E11.9 Type 2 diabetes mellitus without complications; I45.81 Long QT syndrome; I45.10 Unspecified right bundle-branch block; I10 Essential (primary) hypertension
CPT/HCPCS: 36415; 71045; 80164; 84443; 85025; J1815; J3490; J3535